=== PATIENT | female | born 1995 | race Caucasian/White ===

== ENCOUNTER 2016-11-25 13:02 | Emergency (ER) | payer BC ==
--- OUTSIDE RECORDS SUMMARY | 2016-11-25 13:42 | XMS REPORT | Continuity of Care Document ---
:1995 Author Organization [employer] [place] [address] Care Team Providers Name Role Phone Roni Spence Primary Care Provider [phone] Source Comments This disclosure is being made pursuant to the [employer] program and maynot contain all information available regarding this patient.[facility] Active Allergies and Adverse Reactions No Known Allergies Current Medications Be aware that medications may not be up to date as of this document. Alwaysverify current medications with the patient. No known medications Active Problems Not on file Most Recent Encounters Date Type Specialty Providers Description 11/23/2016 Data Import Social History Tobacco Use Types Packs/Day Years Used Date Never Smoker Smokeless Tobacco: Never Used Alcohol Use Drinks/Week oz/Week Comments No 0 Standard drinks or equivalent 0.0 Last Filed Vital Signs Vital Sign Reading Time Taken Blood Pressure 112/82 09/16/2015 10:45 AM [facility] Pulse 84 09/16/2015 10:45 AM [facility] Temperature - - Respiratory Rate - - Height 1.651 m (5' 5") 09/16/2015 10:45 AM [facility]IST[facility] Weight 105.416 kg (232 lb 6.4 oz) 09/16/2015 10:45 AM [facility]MINIST[facility] Body Mass Index 38.67 09/16/2015 10:45 AM [facility]MINIST[facility] Oxygen Saturation - - Plan of Care Health Maintenance Due Date Last Done Comments HPV Vaccine (9-26YO) (1 of 3 - Female 3 Dose Series) 02/08/2007 Chlamydia Screening 2012 Meningococcal Vaccine (1 of 1) 2012 Tetanus/Pertussis (1 - Tdap) 02/08/2015 Influenza Immunization (#1) 2016 Results from Last 3 Months Not on file
--- OUTSIDE RECORDS SUMMARY | 2016-11-25 13:43 | XMS REPORT | Continuity of Care Document ---
:1995 Author Organization [facility] ([facility]) Address [address] [place] [address] Phone [phone] Care Team Providers Name Role Phone Unavailable Primary Care Provider Unavailable Source Comments This disclosure is being made pursuant to the Care Everywhere program, applicable federal and state laws, and may not contain all informaitonavailable regarding this patient.[facility] ([facility]) Active Allergies and Adverse Reactions Not on File Current Medications Not on file Active Problems Not on file Immunizations Name Dates Previously Given Next Due Hepatitis B, unspecified 1995 Social History Tobacco Use Types Packs/Day Years Used Date Never Assessed Plan of Care Health Maintenance Due Date Last Done Comments Hepatitis B Vaccine (2 of 3 - Primary Series) 1995 1996 HPV Vaccine (1 of 3 - Female/Unknown 3 Dose Series) 02/08/2007 Tdap Vaccine 02/08/2007 Meningococcal Vaccine (1 of 1) 2012 Lipid Disorder Screening 02/08/2014 MMR Vaccine 02/08/2014 Td Vaccine 02/08/2014 Varicella Vaccine (1 of 2 - Adult - No Evidence of 02/08/2014 Immunity) Influenza Vaccine: Seasonal (#1) 03/27/2016 Results from Last 3 Months Not on file
--- NOTE | 2016-11-25 13:52 | ERNOTE ---
Abdominal HPI - Narrative Date of Service: 11/25/16 - General Chief Complaint: Abdominal Pain Time Seen by Provider: 11/25/16 13:31 Source: patient Exam Limitations: no limitations - Immun/Allergies/Home Medications Immunizatons: IMMUNIZATION HX Immunizations Up to Date No: unknown History of Influenza Vaccine Yes Hx Pneumococcal Vaccination No Allergies/Adverse Reactions: Allergies No Known Allergies Allergy (Verified 12/02/15 08:42) Home Medications: HOME MEDICATIONS NK [No Home Medication] 11/25/16 [Last Taken Unknown] - History of Present Illness Narrative: Pt. comes in with c/o L LQ pain that started this morning and is accompanied by dysuria, frequency and urgency. Pt. denies any SOB, CP, NVD, fever, back pain, or alleviating factors. Pt. states that urinating worsens the pain and palpation and that she has been on her period for two weeks. Pt. has had nexplanon for her control for 11 months and during that time she has not bled for only two months. Pt. also states that she has had L ovarian pain in the past from cysts but states that this pain is different. Pt. also states that she has had reent diarrhea for three days that resolved yesterday. Review of Systems - Review of Systems Constitutional: Present: no symptoms reported. Absent: recent illness, fever, chills, weakness, fatigue EYE: Present: no symptoms reported ENT: Present: no symptoms reported Respiratory: Present: no symptoms reported. Absent: shortness of breath, cough , wheezing Cardiology: Present: no symptoms reported. Absent: chest pain, palpitations, edema Gastrointestinal/Abdominal: Present: abdominal pain. Absent: nausea, vomiting, diarrhea Genitourinary: Present: no symptoms reported Musculoskeletal: Present: no symptoms reported. Absent: back pain, joint pain Skin: Present: no symptoms reported Neurological: Present: no symptoms reported. Absent: headache, dizziness/light- headedness, numbness, tingling All Other Systems: All systems neg except as marked - Patient's Past Medical History Patient History - Medical: Anxiety, Obesity Patient History - Cardiac/Respiratory: No pertinent hx Patient History - Cancer: No Hx of Cancer Patient History - Surgical Procedures: D & C, Ear Tubes Patient History - Other: None LMP (females 10-50): now LMP (Calendar): 09/24/15 - Family History Mother Family History - Medical: No pertinent hx, Other Family History - Cardiac/Respiratory: No pertinent hx Family History - Cancer: No pertinent family hx Father Family History - Medical: No pertinent hx Family History - Cardiac/Respiratory: No pertinent hx Family History - Cancer: No pertinent family hx Brother Family History - Medical: No pertinent hx Family History - Cardiac/Respiratory: No pertinent hx Family History - Cancer: No pertinent family hx Sister Family History - Medical: No pertinent hx Family History - Cardiac/Respiratory: No pertinent hx Family History - Cancer: No pertinent family hx grandparents Family History - Medical: Diabetes Type 2 Family History - Cardiac/Respiratory: History Unknown Family History - Cancer: No pertinent family hx - Social History Living Situations: alone Abuse History: No History of abuse Psych History: Hx of Anxiety Smoking Status: Never smoker Have you smoked in the past 12 months: No Do you dip or chew tobacco: No Alcohol Use: none Drug Use: none - Immunizations Immunizations Up to Date: No - unknown Hx Pneumococcal Vaccination: No History of Influenza Vaccine: Yes Physical Exam - Physical Exam General Appearance: Present: wd/wn, alert, no apparent distress Eye Exam: Normal inspection: bilateral, PERRL: bilateral, EOMI: bilateral Ears, Nose, Throat: Present: normal ENT inspection, normal pharynx Neck: Present: normal inspection, nontender. Absent: lymphadenopathy (R), lymphadenopathy (L) Respiratory: Present: no respiratory distress, normal breath sounds, no accessory muscle use, chest nontender, lungs clear Cardiovascular/Chest: Present: regular rate, rhythm, no murmur, normal peripheral pulses Gastrointestinal/Abdominal: Present: normal bowel sounds, nondistended, soft, no organomegaly, tenderness - LLQ suprapubic Back Exam: Present: normal inspection, normal range of motion, no CVA tenderness , no vertebral tenderness Extremity Exam: Present: normal inspection, non-tender, normal range of motion, no edema Neurological Exam: Present: alert, oriented, normal mood/affect, no motor/ sensory deficits Skin Exam: Present: normal color, warm/dry. Absent: pallor, skin rash ED Progress - Vital Signs Patient's Vital Signs:: I have reviewed the patient's vital signs. Vital Signs: Vital Signs 11/25/16 13:13 Temperature 37 C Pulse Rate 96 Respiratory 18 Rate Blood Pressure 140/62 O2 Sat by Pulse 100 Oximetry - X-Ray X-Ray #1 X-Ray: abdomen Interpretation: Reviewed by me X-ray Comments: nonspecific bowel gas - CT/Ultrasound CT/Ultrasound Narrative: US negative for any L sided pathology or free fluid. R sided 9mm dominant follicle - Progress/Reassessment Chief Complaint: Abdominal Pain Progress:: Pain free at discharge Departure - Departure Clinical Impression: Gastroenteritis and colitis, viral, Abnormal uterine bleeding (AUB) Disposition: Home self-care Condition: Good Instructions: Viral Gastroenteritis, Adult, [id number], Abnormal Uterine Bleeding Additional Instructions: Please start Iron 325 mg daily, start probiotic daily, may take Ibuprofen and tylenol for pain, and please call Dr Domínguez to follow up for abnormal bleeding.
[2016-11-25 13:55] LABS: Hematocrit 36.5 % (37.0-47.0); Hemoglobin 12.1 gm/dL (12.5-16.0); Mean Cell Volume 81.8 fl (78-100); Mean Corpuscular Hemoglobin 27.1 pg (27-31); Mean Corpuscular Hgb Conc 33.2 g/dl (32-36); Mean Platelet Volume 8.8 fl (6.0-9.5); Platelet Count 330 K/mm3 (150-450); Red Blood Count 4.46 M/mm3 (4.2-5.4); Red Cell Distribution Width 13.2 % (11.5-14.0); White Blood Count 10.7 K/mm3 (4.0-10.5)
[2016-11-25 13:58] LABS: Total Cells Counted 100
[2016-11-25 14:06] LABS: Albumin * 3.5 gm/dl (3.4-5.0); Anion Gap 13.9 mmol/L (6.8-13.8); BUN/Creatinine Ratio 13.5 (9.0-21.6); Bilirubin, Total 0.3 mg/dL (0.0-1.1); Ca. Corrected For Albumin 8.7 mg/dL (8.4-10.2); Calcium * 8.6 mg/dL (7.9-10.9); Carbon Dioxide 27.4 mmol/L (24-32.6); Potassium 3.3 mmol/L (3.4-4.6); Total Protein 7.5 gm/dL (6.2-8.2)
[2016-11-25 14:20] LABS: Urine Appearance Slightly Cloudy; Urine Bilirubin Negative (NEGATIVE); Urine Blood 250 /ul (NEGATIVE); Urine Color Dark Yellow; Urine Ketone Negative (NEGATIVE); Urine Nitrite Negative (NEGATIVE); Urine Protein 100 mg/dL (NEGATIVE); Urine RBC >50 /hpf (0-5); Urine Urobilinogen Normal (NORMAL); Urine WBC 0-5 /hpf (0-5); Urine pH 6.5 pH (5.0-7.0)
[2016-11-25 14:21] LABS: Urine Bacteria 1+
[2016-11-25] MEDS ORDERED: KETOROLAC TROMETHAMINE 60 MG/2 ML VIAL IM ONE ×2 (14:22→14:24)
[2016-11-25 14:37] LABS: Lymphocyte 34 % (20-51); Monocyte 8 % (0-9); Neutrophil 58 % (42-75); Neutrophil # 6.2 K/mm3 (1.3-6.0); Platelet Estimate Normal (NORMAL); RBC Morphology Normal (NORMAL)
[2016-11-25] MEDS ORDERED: MORPHINE SULFATE 2 MG/ML DISP.SYRIN IM ONE (15:15)
[2016-11-25] MEDS ORDERED: MORPHINE SULFATE 2 MG/ML DISP.SYRIN ONE (15:16)
[2016-11-25 15:52] VITALS: BP 150/83
== END 2016-11-25 17:34 | disposition home or self-care (01) ==
LOC: ER 13:02
DX: A08.4 Viral intestinal infection, unspecified (principal); K52.9 Noninfective gastroenteritis and colitis, unspecified; N93.9 Abnormal uterine and vaginal bleeding, unspecified